=== PATIENT | female | born 1980 | race Caucasian/White ===

== ENCOUNTER 2017-06-13 11:10 | Emergency (ER) | payer BC, OTHER ==
[~2017-06-13] VITALS: Ht 177.8 cm; Wt 99.8 kg
[2017-06-13] MEDS ORDERED: KETOROLAC 30 MG/ML VIAL ONE (12:26)
[2017-06-13] MEDS ORDERED: fentaNYL INJECTION 100 MCG/2 ML AMP ONE (12:26)
[2017-06-13] MEDS ORDERED: fentaNYL INJECTION 100 MCG/2 ML AMP IVP ONE ×2 (12:30→14:00)
[2017-06-13] MEDS: KETOROLAC 30 MG/ML VIAL IVP ONE (12:31)
--- NOTE | 2017-06-13 12:31 | ED Abdominal Pain ---
General Chief Complaint: Abdominal/GI Problems Stated Complaint: ABD PAIN Source of Information: Patient Exam Limitations: No Limitations History of Present Illness Date Seen by Provider: Jun 13, 2017 Time Seen by Provider: 12:30 Initial Comments ER per private vehicle with reports of right upper quadrant abdominal pain that radiates through to her back. Pain is worse with deep breathing. She has some nausea. This began about 8:30 this morning while at work at [employer]. She last ate about him. Pain is persistent. No diarrhea. No fevers or chills. She's had one episode similar to this before and this may be her gallbladder. Timing/Duration: 4-6 Hours Severity/Quality: Moderate Radiation: No Radiation Activities at Onset: None Associated Symptoms: Nausea/Vomiting Allergies and Home Medications Allergies Coded Allergies: Sulfa (Sulfonamide Antibiotics) (Verified Allergy, Unknown, 06/13/17) Patient Home Medication List Home Medication List Reviewed: Yes Review of Systems Constitutional: see HPI, No chills, No fever EENTM: No Symptoms Reported Respiratory: No Symptoms Reported Cardiovascular: No Symptoms Reported Gastrointestinal: See HPI, Abdominal Pain, Denies Constipated, Denies Diarrhea , Nausea Genitourinary: No Symptoms Reported Musculoskeletal: no symptoms reported Skin: no symptoms reported Psychiatric/Neurological: No Symptoms Reported Endocrine: No Symptoms Reported Past Cqkuicp-Gqjebv-Tibspi Hx Patient Social History Recent Foreign Travel: No Contact w/Someone Who Travel: No Physical Exam Vital Signs VS - Last 72 Hours, by Label 06/13/17 12:26 Temp 97.9 Pulse 64 Resp 24 B/P (MAP) 115/75 (88) Pulse Ox 100 O2 Delivery Room Air Capillary Refill : General Appearance: WD/WN, no apparent distress HEENT: PERRL/EOMI, normal ENT inspection Neck: non-tender, full range of motion Respiratory: normal breath sounds, no respiratory distress, no accessory muscle use Cardiovascular: regular rate, rhythm, no murmur Gastrointestinal: normal bowel sounds, soft, tenderness Extremities: normal range of motion, non-tender Neurologic/Psychiatric: alert, normal mood/affect, oriented x 3 Skin: normal color, warm/dry Progress/Results/Core Measures Results/Orders Lab Results Laboratory Tests Test 06/13/17 12:35 Range/Units White Blood Count 10.4 4.3-11.0 10^3/uL Red Blood Count 4.48 4.35-5.85 10^6/uL Hemoglobin 13.2 11.5-16.0 G/DL Hematocrit 39 35-52 % Mean Corpuscular Volume 86 80-99 FL Mean Corpuscular Hemoglobin 30 25-34 PG Mean Corpuscular Hemoglobin Concent 34 32-36 G/DL Red Cell Distribution Width 13.8 10.0-14.5 % Platelet Count 242 130-400 10^3/uL Mean Platelet Volume 10.2 7.4-10.4 FL Neutrophils (%) (Auto) 79 H 42-75 % Lymphocytes (%) (Auto) 12 12-44 % Monocytes (%) (Auto) 9 0-12 % Eosinophils (%) (Auto) 0 0-10 % Basophils (%) (Auto) 0 0-10 % Neutrophils # (Auto) 8.2 H 1.8-7.8 X 10^3 Lymphocytes # (Auto) 1.3 1.0-4.0 X 10^3 Monocytes # (Auto) 0.9 0.0-1.0 X 10^3 Eosinophils # (Auto) 0.0 0.0-0.3 10^3/uL Basophils # (Auto) 0.0 0.0-0.1 10^3/uL Sodium Level 141 135-145 MMOL/L Potassium Level 4.2 3.6-5.0 MMOL/L Chloride Level 108 H 98-107 MMOL/L Carbon Dioxide Level 27 21-32 MMOL/L Anion Gap 6 5-14 MMOL/L Blood Urea Nitrogen 18 7-18 MG/DL Creatinine 0.85 0.60-1.30 MG/DL Estimat Glomerular Filtration Rate > 60 BUN/Creatinine Ratio 21 Glucose Level 101 70-105 MG/DL Calcium Level 9.4 8.5-10.1 MG/DL Total Bilirubin 1.2 H 0.1-1.0 MG/DL Aspartate Amino Transf (AST/SGOT) 135 H 5-34 U/L Alanine Aminotransferase (ALT/SGPT) 117 H 0-55 U/L Alkaline Phosphatase 70 40-136 U/L Total Protein 7.0 6.4-8.2 GM/DL Albumin 4.2 3.2-4.5 GM/DL Lipase 21 8-78 U/L My Orders Orders - DOREEN MCKEON FUR SORTER Cbc With Automated Diff (06/13/17 12:19) Comprehensive Metabolic Panel (06/13/17 12:19) Ua Culture If Indicated (06/13/17 12:19) Saline Lock/Iv-Start (06/13/17 12:19) Urine Bedside (06/13/17 12:19) Lipase (06/13/17 12:28) Us Gallbladder [id number] (06/13/17 12:28) Fentanyl Injection (Sublimaze Injection (06/13/17 12:30) Ketorolac Injection (Toradol Injection) (06/13/17 12:30) Fentanyl Injection (Sublimaze Injection (06/13/17 12:26) Ketorolac Injection (Toradol Injection) (06/13/17 12:26) Ondansetron Injection (Zofran Injectio (06/13/17 12:45) Medications Given in ED Current Medications Medications Dose Ordered Sig/Kwaku Route Start Time Stop Time Status Last Admin Dose Admin Fentanyl Citrate 50 mcg ONCE ONCE IVP 06/13/17 12:30 06/13/17 12:31 DC 06/13/17 12:31 50 MCG Ketorolac Tromethamine 30 mg ONCE ONCE IVP 06/13/17 12:30 06/13/17 12:31 DC 06/13/17 12:31 30 MG Ondansetron HCl 8 mg ONCE ONCE IVP 06/13/17 12:45 06/13/17 12:46 DC 06/13/17 12:40 8 MG Vital Signs/I&O Vital Sign - Last 12Hours 06/13/17 12:26 Temp 97.9 Pulse 64 Resp 24 B/P (MAP) 115/75 (88) Pulse Ox 100 O2 Delivery Room Air Departure Communication (Admissions) Progress Notes 1342-Spoke with Dr. Canela. He would like me to send the patient directly to his office and he will arrange follow-up care. camera technician reports multiple mobile tiny stone, common bile duct 8 mm, the wall is normal, no pericholecystic fluid, minor intrahepatic ductal dilatation. Her pain was 10 out of 10 on arrival, pain is currently rated at 2 out of 10 she states. Impression Impression: Primary Impression: Cholelithiasis Disposition: 01 HOME, SELF-CARE Condition: Improved Departure-Patient Inst. Decision time for Depature: 13:43 Referrals: DAMARIS CANELA MD, CRAIG C DO (PCP) Primary Care Physician Patient Instructions: Gallstones (DC) Add. Discharge Instructions: 1. Go from here directly to Dr. Canela office, he is waiting for you. Return to the emergency room for any concerns. All discharge instructions reviewed with patient and/or family. Voiced understanding. DOEREN MCKEON APRN Jun 13, 2017 12:31
[2017-06-13] MEDS ORDERED: ONDANSETRON 4 MG/2 ML (SDV) Z0FRAN IVP ONE (12:45)
[2017-06-13 12:50] LABS: BASOPHILS % (AUTO) 0 % (0-10); EOSINOPHILS % (AUTO) 0 % (0-10); HEMATOCRIT 39 % (35-52); HEMOGLOBIN 13.2 G/DL (11.5-16.0); LYMPHOCYTES # (AUTO) 1.3 X 10^3 (1.0-4.0); LYMPHOCYTES % (AUTO) 12 % (12-44); MEAN CORPUSCULAR HEMOGLOBIN 30 PG (25-34); MEAN CORPUSCULAR HGB CONC 34 G/DL (32-36); MEAN CORPUSCULAR VOLUME 86 FL (80-99); MEAN PLATELET VOLUME 10.2 FL (7.4-10.4); MONOCYTES # (AUTO) 0.9 X 10^3 (0.0-1.0); MONOCYTES % (AUTO) 9 % (0-12); NEUTROPHILS # (AUTO) 8.2 X 10^3 (1.8-7.8); NEUTROPHILS % (AUTO) 79 % (42-75); PLATELET COUNT 242 10^3/uL (130-400); RED BLOOD COUNT 4.48 10^6/uL (4.35-5.85); RED CELL DISTRIBUTION WIDTH 13.8 % (10.0-14.5); WHITE BLOOD COUNT 10.4 10^3/uL (4.3-11.0)
[2017-06-13 13:12] LABS: ALANINE AMINOTRANSFERASE 117 U/L (0-55); ALBUMIN 4.2 GM/DL (3.2-4.5); ALKALINE PHOSPHATASE 70 U/L (40-136); BILIRUBIN,TOTAL 1.2 MG/DL (0.1-1.0); BUN/CREATININE RATIO 21; CALCIUM 9.4 MG/DL (8.5-10.1); CARBON DIOXIDE 27 MMOL/L (21-32); CHLORIDE 108 MMOL/L (98-107); CREATININE SERUM 0.85 MG/DL (0.60-1.30); GFR ESTIMATED > 60; GLUCOSE 101 MG/DL (70-105); LIPASE 21 U/L (8-78); POTASSIUM 4.2 MMOL/L (3.6-5.0); SODIUM 141 MMOL/L (135-145)
[2017-06-13 13:48] LABS: BILIRUBIN,URINE NEGATIVE (NEGATIVE); CLARITY,URINE CLEAR; COLOR,URINE YELLOW; GLUCOSE, URINE (UA) NEGATIVE (NEGATIVE); KETONES,URINE NEGATIVE (NEGATIVE); LEUKOCYTE ESTERASE ,URINE NEGATIVE (NEGATIVE); NITRITE,URINE NEGATIVE (NEGATIVE); PH,URINE 5 (5-9); PROTEIN,URINE NEGATIVE (NEGATIVE); UROBILINOGEN,URINE NORMAL (NORMAL)
[2017-06-13 13:54] VITALS: BP 115/75
[2017-06-13 13:59] LABS: BACTERIA,URINE NEGATIVE /HPF; SQUAMOUS EPITHELIAL CELL,UR 0-2 /HPF
[2017-06-13] MEDS ORDERED: HYDROcodone/APAP 5 MG/325 MG (LORTAB) TAB PO ONE (14:00)
--- NOTE | 2017-06-13 14:02 | Diagnostic Imaging Report ---
CLINICAL INDICATION: Patient with right upper quadrant abdominal pain. EXAM: Right upper quadrant ultrasound. COMPARISON: None. FINDINGS: The pancreatic tail is partially obscured by overlying bowel gas. Otherwise, the pancreas is unremarkable. The liver has normal echogenicity and is mildly enlarged measuring 17.4 cm in craniocaudal dimension. There is no liver mass seen. The hepatic veins demonstrate forward flow. The main portal vein demonstrates hepatopetal flow. There is enlargement of the common bile duct measuring 8 mm. There are multiple posterior shadowing stones in the gallbladder. The gallbladder wall measures roughly 2.4 mm in thickness. There is no pericholecystic fluid. There is a sonographic Lugo sign. There is no definite stone seen within the common duct. The distal portion of the common bile duct is obscured by overlying bowel gas and cannot be evaluated for distal stones. There is no abdominal ascites. The right kidney has normal echogenicity, size, and shape with no hydronephrosis. The right kidney measures 10.5 cm in craniocaudal dimension. IMPRESSION: 1. There is cholelithiasis with a sonographic Lugo sign. The gallbladder wall is at the upper limits of normal size with no pericholecystic fluid. Clinical correlation for acute cholecystitis is suggested. If there is still clinical concern to evaluate for duct obstruction, then MRCP may help better evaluate. 2. Dilated common bile duct measuring 8 mm with no intraductal stone seen. Of note, the distal common bile duct cannot be evaluated and is obscured by overlying bowel gas. A stone in the distal duct cannot be completely excluded. MRCP or ERCP would better evaluate. 3. Mild hepatomegaly. 4. The results of this report were discussed with Onur De Oliveira APRN, via the telephone on 06/13/2017 at 1355 hours. Dictated by: Dictated on workstation # [id number]
[2017-06-13] MEDS ORDERED: LACTATED RINGERS 1,000 ML IV ONE (15:59)
[2017-06-13] MEDS ORDERED: FLUT16SP22 NSEACH (17:26)
[2017-06-13] MEDS ORDERED: LORA10TA7 PO (17:26)
[2017-06-13] MEDS ORDERED: CETI10TA17 PO (17:26)
[2017-06-14] MEDS ORDERED: ACHD5005 PO (14:11)
[2017-06-14] MEDS ORDERED: AMOX-358 PO (14:12)
== END 2017-06-13 13:54 | disposition home or self-care (01) ==
LOC: ER 11:13
DX: K80.20 Calculus of gallbladder without cholecystitis without obstruction (principal); Z88.0 Allergy status to penicillin
CPT/HCPCS: 36415; 76705; 80053; 81000; 83690; 85025; 96374; 96375

== ENCOUNTER 2017-06-13 15:51 | Observation (INO) | payer BC ==
[~2017-06-13] VITALS: Ht 177.8 cm; Wt 99.8 kg
[2017-06-13 16:00] VITALS: BP 107/54
[2017-06-13] MEDS ORDERED: fentaNYL INJECTION 100 MCG/2 ML AMP ONE (16:10)
[2017-06-13] MEDS ORDERED: PIPERACILLIN SODIUM/TAZOBACTAM 4.5 GM in NS (IVPB) 100 ML IV NR (16:30)
[2017-06-13] MEDS ORDERED: ONDANSETRON 4 MG/2 ML (SDV) Z0FRAN IVP PRN (16:45)
[2017-06-13] MEDS: LACTATED RINGERS 1,000 ML IV SCH (17:17)
[2017-06-13] MEDS: fentaNYL INJECTION 100 MCG/2 ML AMP IVP PRN ×2 (17:21→21:40)
[2017-06-13] MEDS ORDERED: FLUT16SP22 NSEACH (17:26)
[2017-06-13] MEDS ORDERED: CETI10TA17 PO (17:26)
[2017-06-13] MEDS ORDERED: LORA10TA7 PO (17:26)
[2017-06-13 20:00] VITALS: BP 99/50
[2017-06-13] MEDS ORDERED: ACETAMINOPHEN 325 MG TABLET/CAPLET (TYLENOL) PO PRN (21:45)
[2017-06-13] MEDS: PIPERACILLIN SODIUM/TAZOBACTAM 4.5 GM in NS (IVPB) 100 ML IV SCH (22:54)
[2017-06-14] VITALS (8 sets, daily range): BP systolic 96–119; BP diastolic 52–71
[2017-06-14] MEDS: LACTATED RINGERS 1,000 ML IV SCH ×3 (02:08→16:19)
[2017-06-14] MEDS: fentaNYL INJECTION 100 MCG/2 ML AMP IVP PRN ×2 (04:04→15:18)
[2017-06-14] MEDS: PIPERACILLIN SODIUM/TAZOBACTAM 4.5 GM in NS (IVPB) 100 ML IV SCH ×2 (06:24→15:54)
[2017-06-14] MEDS ORDERED: BUP/EPI 0.5% 1:200,000 (SENSORCAINE) 30 ML VIAL ONE (10:44)
--- NOTE | 2017-06-14 10:54 | Progress Note-Pre Operative ---
Pre-Operative Progress Note H&P Reviewed The H&P was reviewed, patient examined and no changes noted. Date Seen by Provider: Jun 14, 2017 Time Seen by Provider: 15:00 Date H&P Reviewed: Jun 14, 2017 Time H&P Reviewed: 10:54 Pre-Operative Diagnosis: Gallstones with acute cholecystitis DAMARIS CANELA MD Jun 14, 2017 10:54
[2017-06-14] MEDS ORDERED: MIDAZOLAM 2 MG/2 ML (VERSED) VIAL ONE ×2 (10:55)
[2017-06-14] MEDS ORDERED: ROCURONIUM 10 MG/ML 5 ML SYRINGE IV ONE ×2 (10:55→12:03)
[2017-06-14] MEDS ORDERED: proPOfol 200 MG/20 ML (DIPRIVAN) VIAL IV ONE (10:55)
[2017-06-14] MEDS ORDERED: SEVOFLURANE (ULTANE) 15 ML INHAL SOLN ONE ×9 (10:55→13:38)
[2017-06-14] MEDS ORDERED: DEXAMETHASONE 10 MG/ML (DECADRON) 1 ML VIAL ONE (10:55)
[2017-06-14] MEDS ORDERED: LIDOCAINE PF 2% 5 ML (XYLOCAINE) VIAL ONE (10:55)
[2017-06-14] MEDS ORDERED: fentaNYL INJECTION 100 MCG/2 ML AMP ONE ×2 (10:55→10:59)
[2017-06-14] MEDS ORDERED: ONDANSETRON 4 MG/2 ML (SDV) Z0FRAN ONE (10:55)
[2017-06-14] MEDS ORDERED: metroNIDAZOLE 500MG/100ML IVPB 100 ML ONE (11:00)
[2017-06-14] MEDS ORDERED: ceFAZolin 2 GM IV Premixed 50 ML IV NR (11:00)
[2017-06-14] MEDS ORDERED: ceFAZolin 2 GM IV Premixed 50 ML ONE (11:00)
[2017-06-14] MEDS ORDERED: metroNIDAZOLE 500MG/100ML IVPB 100 ML IV NR (11:00)
[2017-06-14] MEDS: LACTATED RINGERS 1,000 ML IV PRN ×2 (11:10→12:45)
[2017-06-14] MEDS ORDERED: GLUCAGON EMERGENCY 1 MG/KIT ONE (13:01)
[2017-06-14] MEDS ORDERED: GLYCOPYRROLATE 0.2 MG/ML (ROBINUL) 2 ML VIAL ONE (13:34)
[2017-06-14] MEDS ORDERED: NEOSTIGMINE 1 MG/ML 5 ML SYRINGE ONE (13:34)
--- NOTE | 2017-06-14 13:58 | Diagnostic Imaging Report ---
INDICATION: Intraoperative cholangiogram. TIME OF EXAMINATION: 12:00 PM. FINDINGS: Fluoroscopy was provided during intraoperative cholangiogram. Contrast has been injected via the cystic duct remnant. The intrahepatic and extrahepatic bile ducts are opacified. Contrast does pass into the duodenum. No filling defects are seen to suggest a retained stone. 55 seconds of fluoroscopic time was utilized. IMPRESSION: Fluoroscopy for intraoperative cholangiogram. Dictated by: Dictated on workstation # [id number]
[2017-06-14] MEDS ORDERED: morphine INJ 10 MG/ML 1ML (SYR OR VIAL) ONE (14:00)
--- NOTE | 2017-06-14 14:10 | Operative Report ---
Operative Report Date of Procedure/Surgery Jun 14, 2017 Surgeon (s) DAMARIS CANELA MD Healthcare Social Worker (s): N/A Post-Operative Diagnosis 1. Acute Cholecystitis 2. Obstructed common bile duct with a single stone at the distal end. Dilated common bile duct Procedure Performed Robotic-assisted cholecystectomy Intraoperative cholangiogram Description of Procedure Anesthesia Type: General Estimated blood loss (mL): Minimal Specimen(s) collected/removed Gallbladder with stones Description of the Procedure Indication for the procedure: This lady presented with symptomatic gallstones and acute cholecystitis along with elevated liver enzymes. She was admitted overnight to receive adequate pain control and intravenous antibiotics. She was offered cholecystectomy using minimally invasive technique with robotic assistance, combined with cholangiogram first. This decision was felt to be a reasonable due to acute cholecystitis taking precedence over choledocholithiasis. Informed consent was obtained after reviewing the operative details and complications of wound infection, bile leak and cardio-respiratory dysfunction. Description of the procedure: She was placed supine on the operative table and general anesthesia induced using an endotracheal tube. 2 g of Ancef and 500 mg of Flagyl were administered intravenously as prophylaxis against wound infection. Sequential compression devices were placed around her legs, to prevent the risk of venous thrombosis. Abdomen was prepared and draped in the usual strength. Pneumoperitoneum was established using a Veress needle introduced over the left subcostal margin. Intra-abdominal pressure was maintained at 17 mmHg. A 5 mm trocar was placed and anatomy visualized using the conventional, 5 mm laparoscope. Under direct view, I placed a 12 mm trocar, insufflated to the umbilicus followed by two 8 mm trocars along the right side of abdomen. She was then turned into reverse Trendelenburg position and the robotic system docked in place. Gallbladder was acutely inflamed with impending gangrene. The fundus was retracted cephalad and the infundibulum grasped with Cadiere forceps. Inflamed tissue around Calot's triangle was incised using the hook cautery, delineating the cystic duct, which was rather wide, and the artery. Cholangiogram was obtained using a Taut catheter. It revealed an obstructed bile duct which was slightly dilated. Despite administering intravenous glucagon and waiting at least 2-3 minutes, the contrast would not flow into the duodenum. The catheter was then removed and the cystic duct controlled using ligaclips. Postoperative ERCP would be arranged to address the common duct stone. Cystic artery was then divided between ligaclips and cholecystectomy completed using hook cautery. The gallbladder was then placed in an Endo Catch bag and removed via the subumbilical trocar site. The fascia over this incision was closed using #1 Vicryl. Skin incisions were closed using 4-0 Vicryl, in a subcuticular fashion. 0.5 percent Marcaine with epinephrine was infiltrated along the incisions, both preemptively and at the conclusion of the operation. She tolerated the procedure well, was extubated in the operating room and taken to the recovery room in a stable condition. Findings of the Procedure See op report Allergies and Home Medications Allergies Coded Allergies: Sulfa (Sulfonamide Antibiotics) (Verified Allergy, Unknown, 06/13/17) Home Medications Cetirizine HCl 10 Mg Tablet, 10 MG PO DAILY PRN for ALLERGIES, (Reported) ALTERNATES WITH LORATADINE WITH EACH SEASON CHANGE Fluticasone Propionate 16 Gm [place].susp, 1 SPRAY NSEACH DAILY, (Reported) Loratadine 10 Mg Tablet, 10 MG PO DAILY PRN for ALLERGIES, (Reported) ALTERNATES WITH CETIRIZINE WITH EACH SEASON CHANGE Patient Home Medication List Home Medication List Reviewed: Yes DAMARIS CANELA MD Jun 14, 2017 2:10 pm
[2017-06-14] MEDS ORDERED: ACHD5005 PO (14:11)
[2017-06-14] MEDS ORDERED: AMOX-358 PO (14:12)
[2017-06-14] MEDS ORDERED: MEPERIDINE (DEMEROL) INJ 50 MG/ML IVP PRN (14:15)
[2017-06-14] MEDS ORDERED: ONDANSETRON 4 MG/2 ML (SDV) Z0FRAN IVP PRN (14:15)
--- NOTE | 2017-06-14 14:15 | Discharge Inst-Simple/Standard ---
Discharge Inst-Standard Discharge Medications New, Converted or Re-Newed RX: RX on Chart Patient Instructions/Follow Up Plan of Care/Instructions/FU: To wait for instructions from Dr. Ignacio regarding the timing of ERCP. Incentive spirometry. Follow-up with me in 10 days Activity as Tolerated: Yes Discharge Diet: Soft Diet DAMARIS CANELA MD Jun 14, 2017 2:15 pm
[2017-06-14] MEDS: morphine INJ 10 MG/ML 1ML (SYR OR VIAL) IVP PRN ×3 (14:20→14:34)
--- NOTE | 2017-06-14 14:37 | Anesthesia-General Post-Op ---
General Patient Condition Mental Status/LOC: Same as Preop Cardiovascular: Satisfactory Nausea/Vomiting: Absent Respiratory: Satisfactory Pain: Controlled Complications: Absent Post Op Complications Complications None Follow Up Care/Instructions Patient Instructions None needed. Anesthesia/Patient Condition Patient Condition Patient is doing well, no complaints, stable vital signs, no apparent adverse anesthesia problems. No complications reported per nursing. MARLIN WILLIS CRNA Jun 14, 2017 14:37
== END 2017-06-14 14:12 | disposition home or self-care (01) ==
LOC: 4TH 15:51 → UNDOADMOB 15:51 → 4TH 16:00 → UNDODISOB 06-14 19:45
PROVIDERS: ADMIT Surgery; ATTEND Surgery
DX: K80.42 Calculus of bile duct with acute cholecystitis without obstruction (principal); Z88.2 Allergy status to sulfonamides
CPT/HCPCS: 84703; 87081; 99211; G0378

== ENCOUNTER → 2018-09-27 | Outpatient (CLI) | payer OTHER ==
[~2018-09-27] MED LIST: ACHD5005 PO; AMOX-358 PO; CETI10TA17 PO; FLUT16SP22 NSEACH; LORA10TA7 PO
[2018-09-27 08:51] LABS: BASOPHILS % (AUTO) 1 % (0-10); EOSINOPHILS # (AUTO) 0.1 10^3/uL (0.0-0.3); EOSINOPHILS % (AUTO) 2 % (0-10); HEMATOCRIT 38 % (35-52); HEMOGLOBIN 12.9 G/DL (11.5-16.0); LYMPHOCYTES # (AUTO) 1.6 X 10^3 (1.0-4.0); LYMPHOCYTES % (AUTO) 32 % (12-44); MEAN CORPUSCULAR HEMOGLOBIN 30 PG (25-34); MEAN CORPUSCULAR HGB CONC 34 G/DL (32-36); MEAN CORPUSCULAR VOLUME 89 FL (80-99); MEAN PLATELET VOLUME 9.7 FL (7.4-10.4); MONOCYTES # (AUTO) 0.5 X 10^3 (0.0-1.0); MONOCYTES % (AUTO) 9 % (0-12); NEUTROPHILS # (AUTO) 2.8 X 10^3 (1.8-7.8); NEUTROPHILS % (AUTO) 57 % (42-75); PLATELET COUNT 231 10^3/uL (130-400); RED CELL DISTRIBUTION WIDTH 12.7 % (10.0-14.5)
--- NOTE | 2018-09-27 09:18 | Diagnostic Imaging Report ---
Indication: Chest pain PA and lateral chest Heart size and pulmonary vascularity are normal. Lungs are clear. There are no effusions or pneumothoraces. Impression: Negative chest. Dictated by: Dictated on workstation # [id number]
[2018-09-27 09:19] LABS: ALANINE AMINOTRANSFERASE 18 U/L (0-55); ALBUMIN 4.1 GM/DL (3.2-4.5); ALKALINE PHOSPHATASE 47 U/L (40-136); BILIRUBIN,TOTAL 0.8 MG/DL (0.1-1.0); BUN/CREATININE RATIO 17; CARBON DIOXIDE 23 MMOL/L (21-32); CHLORIDE 109 MMOL/L (98-107); CHOLESTEROL 141 MG/DL (< 200); CREATININE SERUM 0.81 MG/DL (0.60-1.30); GFR ESTIMATED > 60; GLUCOSE 89 MG/DL (70-105); HDL CHOLESTEROL 51 MG/DL (40-60); POTASSIUM 4.1 MMOL/L (3.6-5.0); SODIUM 140 MMOL/L (135-145); TOTAL PROTEIN 6.8 GM/DL (6.4-8.2); TRIGLYCERIDES 56 MG/DL (<150); VLDL CHOLESTEROL 11 MG/DL (5-40)
== END ==
LOC: CARD 08:18
PROVIDERS: ATTEND Physician Assistant
DX: R07.9 Chest pain, unspecified (principal); R63.2 Polyphagia; R63.1 Polydipsia; Z82.49 Family history of ischemic heart disease and other diseases of the circulatory system
CPT/HCPCS: 36415; 71046; 80053; 80061; 84443; 85025; 93005